=== PATIENT | female | born 1990 | race Caucasian/White ===

== ENCOUNTER 2023-02-16 16:36 | Inpatient (IN) | payer OTHER ==
[2023-02-16] MEDS ORDERED: hydrALAZINE 20 MG/ML VIAL SLOW IVP PRN (17:43)
[2023-02-16] MEDS ORDERED: Promethazine HCl 25 MG/ML VIAL IM PRN ×2 (18:16→19:04)
[2023-02-16] MEDS ORDERED: Bicitra 30 ML UDCUP PO PRN (18:16)
[2023-02-16] MEDS ORDERED: Carboprost 250 MCG/ML AMP IM PRN (18:16)
[2023-02-16] MEDS ORDERED: Famotidine/PF 20 mg/2ml Vial SLOW IVP PRN (18:16)
[2023-02-16] MEDS ORDERED: Methylergonovine 0.2 MG/ML VIAL IM PRN (18:16)
[2023-02-16] MEDS ORDERED: Ondansetron PF 4 MG/2 ML Vial IVP PRN ×2 (18:16→19:04)
[2023-02-16] MEDS ORDERED: Misoprostol 200 MCG TAB PR PRN (18:16)
[2023-02-16] MEDS ORDERED: Diphenoxylate HCl/Atropine Tablet PO PRN (18:16)
[2023-02-16] MEDS ORDERED: Acetaminophen 500 MG TAB PO PRN (18:16)
[2023-02-16] MEDS ORDERED: CEFAZOLIN 2 GM VIAL ONE (18:22)
[2023-02-16] MEDS ORDERED: NS w/ Oxytocin 30 units 500 ML IV SCH (18:30)
[2023-02-16] MEDS ORDERED: Lactated Ringer's 1,000 ML IV SCH (18:30)
[2023-02-16] MEDS ORDERED: CEFAZOLIN 2 GM in Sodium Chloride 0.9% 100 ML IVPB SCH (18:30)
[2023-02-16 18:37] VITALS: BMI 33.2
[2023-02-16] MEDS ORDERED: Ondansetron HCl/PF 4 MG/2 ML Vial IVP PRN (19:04)
[2023-02-16] MEDS ORDERED: Promethazine HCl 25 MG SUPP PR PRN (19:04)
[2023-02-16] MEDS ORDERED: Moisturizing Cream (Eucerin) 113 GM JAR TOP PRN (19:04)
[2023-02-16] MEDS ORDERED: diphenhydrAMINE 50 MG/ML VIAL IVP PRN (19:04)
[2023-02-16] MEDS ORDERED: Naloxone HCl 0.4 mg/ml Vial IVP PRN ×2 (19:04)
[2023-02-16] MEDS ORDERED: Naloxone HCl 0.4 mg/ml Vial IV PRN (19:04)
[2023-02-16] MEDS ORDERED: Meperidine HCl/PF 25 MG/ML VIAL SLOW IVP PRN (19:04)
[2023-02-16] MEDS ORDERED: Fentanyl 100 MCG/2 ML VIAL SLOW IVP PRN (19:04)
[2023-02-16 19:06] LABS: Mean Corpuscular HGB CONC 33.2 g/dL (32.0-36.0); Mean Corpuscular Volume 87.2 fl (81.6-98.3); Mean Platelet Volume 11.3 fl (7.4-10.4); Platelet Count 171 10x3/uL (150-450); RBC Distribution Width 16.1 % (11.5-14.5); Red Blood Cell (RBC) Count 4.14 10x6/uL (3.90-5.03); White Blood Cell (WBC) Count 13.8 10x3/uL (3.5-10.5)
[2023-02-16] MEDS ORDERED: Communication Order-Pharmacy FS SCH (19:15)
[2023-02-16] MEDS ORDERED: Ketorolac Tromethamine 30 MG/ML VIAL IVP SCH (19:15)
[2023-02-16] MEDS ORDERED: Morphine PF 10 MG/10 ML VIAL ONE (19:17)
[2023-02-16] MEDS ORDERED: diphenhydrAMINE 50 MG/ML VIAL ONE (19:58)
[2023-02-16] MEDS ORDERED: Metoclopramide HCl 10 MG/2 ML VIAL ONE (19:59)
[2023-02-16] MEDS ORDERED: Oxytocin 10 UNITS/ML VIAL ONE (20:12)
[2023-02-16] MEDS ORDERED: Boostrix 0.5 ML (Tdap) VIAL (>/=7 yrs of age) IM ONE (20:37)
[2023-02-16] MEDS ORDERED: Lanolin Ointment 7 GM TUBE TOP PRN (20:37)
[2023-02-16] MEDS ORDERED: Acetaminophen 325 MG TAB PO PRN (20:37)
[2023-02-16] MEDS ORDERED: Simethicone Chewable 80 MG TAB PO PRN (20:37)
[2023-02-16 20:45] LABS: pH (Cord, venous) 7.307 (7.250-7.350)
[2023-02-16] MEDS: Docusate 100 MG CAP PO SCH (23:20)
[2023-02-16] MEDS: Ferrous Sulfate 325 MG TAB PO SCH (23:21)
[2023-02-16 23:39] LABS: HBSAg Index 0.12 S/CO (0-0.99); Hep B Surf Ag - L&D Non-Reactive S/CO (NonReactive)
[2023-02-16 23:40] LABS: Syphilis Antibody Nonreactive (Nonreactive); Syphilis Antibody Index 0.02 S/CO (<1.00 Non-Reactive)
[2023-02-17] MEDS: Ketorolac Tromethamine 30 MG/ML VIAL IVP PRN ×2 (00:12→06:06)
[2023-02-17 03:47] LABS: Hemoglobin 10.5 g/dL (12.0-15.5); Mean Corpuscular Hemoglobin 28.6 pg (27.0-33.0); Mean Corpuscular Volume 86.6 fl (81.6-98.3); Mean Platelet Volume 11.5 fl (7.4-10.4); Platelet Count 160 10x3/uL (150-450); RBC Distribution Width 16.1 % (11.5-14.5); Red Blood Cell (RBC) Count 3.67 10x6/uL (3.90-5.03); White Blood Cell (WBC) Count 17.3 10x3/uL (3.5-10.5)
[2023-02-17] MEDS: Ferrous Sulfate 325 MG TAB PO SCH (08:31)
[2023-02-17] MEDS: Prenatal Vitamin 1 TAB PO SCH (10:07)
[2023-02-17] MEDS: Docusate 100 MG CAP PO SCH ×2 (10:08→21:08)
[2023-02-17] MEDS: HYDROcodone/Acetaminophen 5/325 mg Tablet PO PRN ×2 (12:16→17:43)
[2023-02-17] MEDS: Ibuprofen 800 MG TAB PO SCH (21:09)
[2023-02-18] MEDS: Ibuprofen 800 MG TAB PO SCH (04:44)
[2023-02-18 07:53] VITALS: TEMP 98.1
[2023-02-18 08:05] VITALS: BP 131/76
[2023-02-18] MEDS: Docusate 100 MG CAP PO SCH (08:46)
[2023-02-18] MEDS: Prenatal Vitamin 1 TAB PO SCH (08:46)
[2023-02-18] MEDS: HYDROcodone/Acetaminophen 5/325 mg Tablet PO PRN ×2 (08:46→11:58)
[2023-02-18] MEDS: Ferrous Sulfate 325 MG TAB PO SCH ×2 (08:49→09:19)
== END 2023-02-18 12:00 | disposition home or self-care (01) | DRG 787 ==
LOC: CSHLD/OP 16:36 → CSHLD 19:07 → CSHPP 22:58
PROVIDERS: ADMIT Obstetrics & Gynecology; ATTEND Obstetrics & Gynecology
PROC: 10D00Z1 Extraction of Products of Conception, Low, Open Approach (ICD-10-PCS; principal; 2023-02-16)
DX: O36.63X0 Maternal care for excessive fetal growth, third trimester, not applicable or unspecified (principal); Z3A.38 38 weeks gestation of pregnancy; Z37.0 Single live birth; O72.1 Other immediate postpartum hemorrhage; O40.3XX0 Polyhydramnios, third trimester, not applicable or unspecified; O99.344 Other mental disorders complicating childbirth; F41.9 Anxiety disorder, unspecified; O32.8XX0 Maternal care for other malpresentation of fetus, not applicable or unspecified; Z79.899 Other long term (current) drug therapy
CPT/HCPCS: 36415; 51702; 82805; 85027; 86780; 86850; 86900; 86901; 87340; 88307; 99285; J1200; J1885; J2274; J2590; J2765; J3490